=== PATIENT | male | born 1940 | race Caucasian/White ===

== ENCOUNTER 2018-07-17 14:56 | Emergency (ER) | payer OTHER ==
[~2018-07-17] VITALS: Ht 177.8 cm; Wt 99.8 kg
[~2018-07-17 14:56] MED LIST: ASPIR 8181 MG PO; ATENOLOL 100MG100 MG PO; COLCRYS0.6 MG PO; DOXAZOSIN MESYLA4 MG PO; LIPITOR 20 MG T20 M1 PO; MAXZIDE-25 MG1 EACH PO; MOBIC7.5 MG PO; PREDNISONE 20 M20 M1 PO; PRILOSEC20 MG PO; TYLENOL325 MG PO; VASOTEC10 MG PO
[2018-07-17] MEDS ORDERED: NORCO 5-325 TA1 EACH PO (16:32)
[2018-07-17 16:47] VITALS: BP 160/70
== END 2018-07-17 16:48 | disposition home or self-care (01) ==
LOC: ER 14:56
DX: S42.212A Unspecified displaced fracture of surgical neck of left humerus, initial encounter for closed fracture (principal); K40.90 Unilateral inguinal hernia, without obstruction or gangrene, not specified as recurrent; M10.9 Gout, unspecified; I10 Essential (primary) hypertension; E78.00 Pure hypercholesterolemia, unspecified; W18.39XA Other fall on same level, initial encounter; Y93.89 Activity, other specified; Y92.89 Other specified places as the place of occurrence of the external cause; Y99.8 Other external cause status

== ENCOUNTER 2018-07-17 20:17 | Emergency (ER) | payer OTHER ==
[~2018-07-17] VITALS: Ht 177.8 cm; Wt 99.8 kg
[~2018-07-17 20:17] MED LIST changes: +NORCO 5-325 TA1 EACH PO
[2018-07-17 21:09] VITALS: BP 158/68
== END 2018-07-17 21:09 | disposition home or self-care (01) ==
LOC: ER 20:17
DX: S42.92XA Fracture of left shoulder girdle, part unspecified, initial encounter for closed fracture (principal); R55 Syncope and collapse; M10.9 Gout, unspecified; I10 Essential (primary) hypertension; E78.00 Pure hypercholesterolemia, unspecified; Z87.891 Personal history of nicotine dependence; W00.0XXA Fall on same level due to ice and snow, initial encounter; Y93.89 Activity, other specified; Y92.89 Other specified places as the place of occurrence of the external cause; Y99.8 Other external cause status